=== PATIENT | male | born 1975 | race Caucasian/White ===

== ENCOUNTER 2018-10-07 12:20 | Emergency (ER) | payer SELFPAY ==
[~2018-10-07] VITALS: Ht 177.8 cm; Wt 94.8 kg
[~2018-10-07 12:20] MED LIST: AMOX500 PO; CEPH500 PO; CODGUAEL PO; IBUHYD PO; PROACE100 PO; RXHYDMOR2 PO; RXPROACE PO; SULTRIDS PO
[2018-10-07] MEDS ORDERED: IBUP800 PO (13:11)
== END 2018-10-07 13:34 | disposition home or self-care (01) ==
LOC: ER 12:20
DX: S50.812A Abrasion of left forearm, initial encounter (principal); M25.561 Pain in right knee; V89.2XXA Person injured in unspecified motor-vehicle accident, traffic, initial encounter
CPT/HCPCS: 99283